=== PATIENT | female | born 1990 | race Caucasian/White ===

== ENCOUNTER 2017-08-18 09:17 | Emergency (ER) | payer OTHER ==
[2017-08-18 09:30] VITALS: BMI 30.9
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
[2017-08-18 10:47] VITALS: BP 120/70; PULSE 100; TEMP 98.1
== END 2017-08-18 12:35 | disposition home or self-care (01) ==
LOC: JER 09:17
DX: O99.89 Other specified diseases and conditions complicating pregnancy, childbirth and the puerperium (principal); M54.2 Cervicalgia; R10.32 Left lower quadrant pain; Z3A.29 29 weeks gestation of pregnancy
CPT/HCPCS: 99281-25